=== PATIENT | female | born 1950 | race Caucasian/White ===

== ENCOUNTER 2019-05-13 12:14 | Emergency (ER) | payer MEDICARE, OTHER ==
[~2019-05-13] VITALS: Ht 167.6 cm; Wt 67.6 kg
[2019-05-13] MEDS ORDERED: REQUIP 0.25 M0.25 M1 PO (12:33)
[2019-05-13] MEDS ORDERED: ZANAFLEX2 M1 PO (12:33)
[2019-05-13] MEDS ORDERED: PRAVASTATIN SOD20 MG PO (12:33)
[2019-05-13] MEDS ORDERED: LEVO-T75 MCG PO (12:34)
[2019-05-13] MEDS ORDERED: INTERMEZZO3.5 MG SUBLING (12:34)
[2019-05-13] MEDS ORDERED: SLOW FE142 MG PO (12:34)
[2019-05-13] MEDS ORDERED: OMEPRAZOLE40 MG PO (12:35)
[2019-05-13 12:40] LABS: ABSOLUTE EOSINOPHILS 0.1 thou/uL (0.0-0.7); ABSOLUTE LYMPHOCYTES 1.1 thou/uL (0.8-5.3); ABSOLUTE MONOCYTES 0.5 thou/uL (0.0-1.2); ABSOLUTE NEUTROPHILS 2.2 thou/uL (1.6-8.1); BASOPHILS 1.2 %; EOSINOPHILS 3.8 %; HEMATOCRIT 37.4 % (37.0-47.0); HEMOGLOBIN 12.9 gm/dL (12.0-15.0); LYMPHOCYTES 27.1 %; MCH 33.7 pg (26.0-34.0); MCHC 34.4 g/dL (28.0-37.0); MCV 98.2 fL (80.0-100.0); MONOCYTES 12.3 %; NUCLEATED RBCS 0 /100WBC; PLATELET COUNT* 197 thou/uL (150-400); POLYS 55.6 %; RBC 3.81 mil/uL (4.20-5.00); RDW-CV 13.7 % (10.5-14.5); WBC 3.9 thou/uL (4.0-11.0)
[2019-05-13 12:49] LABS: CALCIUM 8.5 mg/dL (8.5-10.1); CREATININE 1.1 mg/dL (0.6-1.3)
[2019-05-13 12:51] LABS: APTT 30.6 Seconds (25.0-31.3); PROTIME 10.2 Seconds (9.20-11.50)
[2019-05-13 12:54] LABS: TOTAL BILIRUBIN 0.3 mg/dL (<0.1-1.0); TOTAL PROTEIN 7.2 g/dL (6.4-8.2)
[2019-05-13 13:22] LABS: URINE BILIRUBIN NEGATIVE (Negative); URINE BLOOD NEGATIVE (Negative); URINE COLOR YELLOW; URINE GLUCOSE-RANDOM NEGATIVE (Negative); URINE KETONES NEGATIVE (Negative); URINE NITRITE-REFLEX NEGATIVE (Negative); URINE PROTEIN NEGATIVE (Negative); URINE SPECIFIC GRAVITY <= 1.005 (1.005-1.030); URINE UROBILINOGEN 0.2 E.U./dl (0.2-1.0)
[2019-05-13 13:23] LABS: URINE CLARITY HAZY; URINE LEUKOCYTES-REFLEX 2+ (Negative)
[2019-05-13 13:34] LABS: SQUAMOUS 0-3 Few /LPF (0-3)
[2019-05-13 13:35] LABS: BACTERIA-REFLEX None Seen /HPF (None Seen); CASTS None Seen /LPF (None Seen); CRYSTALS None Seen /LPF (None Seen); URINE RBC None Seen /HPF (0-2); URINE WBC-REFLEX 0-5 Rare /HPF (0-5)
[2019-05-13 14:36] VITALS: BP 199/104
--- NOTE | 2019-05-13 17:42 | EKG ---
[place] [address] ELECTROCARDIOGRAM REPORT Name: TK FIGUEROA Room: [facility]#: [id number] Admission: 05/13/19 Attend Phys: Discharge: 05/13/19 Date of : 48 Date of Service: 05/13/19 1242 Report #: [id number] THIS REPORT FOR: //name// [facility] ED Test Date: 2019-05-13 Test Time: 12:42:09 Pat Name: TK FIGUEROA Department: Room: Gender: Administrative Support Associate: : 1950 Requested By: Kwasi Velasquez Order Number: [id number] MD: Taruus Posadas Measurements Intervals [place] Rate: 70 P: 38 NC: 211 QRS: -25 QRSD: 95 T: 52 QT: 454 QTc: 490 Interpretive Statements Sinus rhythm Inferior infarct, old No previous ECG available for comparison Electronically Signed On 05-13-2019 17:41:31 [employer]IP [employer] by Taurus Posadas [email or web address] <ELECTRONICALLY SIGNED> By: Taurus Posadas MD, [facility] 05/13/19 1741 1242 1242 Taurus Posadas MD, FACC /EPI
== END 2019-05-13 14:36 | disposition home or self-care (01) ==
LOC: M.ERS 12:14
PROVIDERS: Family Medicine
DX: S00.83XA Contusion of other part of head, initial encounter (principal); W10.9XXA Fall (on) (from) unspecified stairs and steps, initial encounter; Y92.89 Other specified places as the place of occurrence of the external cause; Y93.89 Activity, other specified; Y99.8 Other external cause status